=== PATIENT | female | born 1985 | race Caucasian/White ===

== ENCOUNTER 2022-02-08 04:26 | Emergency (ER) | payer SELFPAY ==
[~2022-02-08] VITALS: Ht 170.2 cm; Wt 73.0 kg
[2022-02-08] MEDS ORDERED: ACETAMINOPHEN 325MG TABLET PO ONE (05:45)
[2022-02-08] MEDS ORDERED: TOPUD PO (07:12)
[2022-02-08 08:51] VITALS: BP 118/62
== END 2022-02-08 08:54 | disposition home or self-care (01) ==
LOC: ER 04:26
DX: M25.571 Pain in right ankle and joints of right foot (principal); V03.90XA Pedestrian on foot injured in collision with car, pick-up truck or van, unspecified whether traffic or nontraffic accident, initial encounter; Y93.89 Activity, other specified; Y92.488 Other paved roadways as the place of occurrence of the external cause
CPT/HCPCS: 73610; 73620; 81025; 99284